=== PATIENT | male | born 1960 | race Caucasian/White ===

== ENCOUNTER 2025-03-25 13:19 | Outpatient (RCR) | payer OTHER, SELFPAY | END 2025-03-26 23:59 | disposition home or self-care (01) | LOC: MPT 13:19 | PROVIDERS: Visit Provider Orthopaedic Surgery | DX: Z47.1 Aftercare following joint replacement surgery (principal); Z96.652 Presence of left artificial knee joint | CPT/HCPCS: 97110; 97140; 97162; G0283 ==

== ENCOUNTER 2025-04-20 12:57 | Outpatient (RCR) | payer OTHER, SELFPAY | END 2025-04-25 23:59 | disposition home or self-care (01) | LOC: MPT 12:57 | PROVIDERS: Visit Provider Orthopaedic Surgery | DX: Z47.1 Aftercare following joint replacement surgery (principal); Z96.652 Presence of left artificial knee joint | CPT/HCPCS: 97110; 97112; 97116; 97140 ==

== ENCOUNTER 2025-05-26 11:52 | Outpatient (RCR) | payer OTHER, SELFPAY | END 2025-05-26 23:59 | disposition home or self-care (01) | LOC: MPT 11:52 | PROVIDERS: Visit Provider Orthopaedic Surgery | DX: M25.562 Pain in left knee (principal); Z47.89 Encounter for other orthopedic aftercare | CPT/HCPCS: 97110; 97112; 97530 ==